=== PATIENT | male | born 1970 | race Caucasian/White ===

== ENCOUNTER 2018-06-09 20:24 | Emergency (ER) | payer OTHER ==
[2018-06-09] MEDS ORDERED: DECADRON PO ONE (21:29)
[2018-06-09] MEDS ORDERED: PROVENTIL IH ONE (21:29)
--- NOTE | 2018-06-09 21:31 | Emergency Department Report ---
Blank Doc - Documentation Documentation: 47 y/o male with pmh of asthma presents to ED c/o of coryza, chest congestion and wheezing. Feels he is having a asthma flare.
--- NOTE | 2018-06-09 23:12 | XRay Report ---
PROCEDURE: XR CHEST ROUTINE 2V TECHNIQUE: 2 view chest HISTORY: wheezing COMPARISONS: FINDINGS: Cardiac and mediastinal contours are unremarkable. No focal pulmonary infiltrate identified. No pleur al fluid collection seen. Pulmonary vasculature is unremarkable. IMPRESSION: No acute findings in the chest. This document is electronically signed by Jose Diana MD., Jun 09 2018 11:10:32 PM ET
[2018-06-10] MEDS ORDERED: ZITHROMAX PO ONE (02:58)
[2018-06-10] MEDS ORDERED: IBUPROFEN PO ONE (02:58)
[2018-06-10] MEDS ORDERED: PROVENTIL IH ONE (02:58)
--- NOTE | 2018-06-10 03:06 | Emergency Department Report ---
ED General Adult HPI - General Chief complaint: Chest Pain Stated complaint: CHEST PAIN/TAMMI Time Seen by Provider: 06/09/18 21:29 Source: patient Mode of arrival: Ambulatory Limitations: Language Barrier - History of Present Illness Initial comments: 47 y/o male with pmh of asthma presents to ED c/o of coryza, chest congestion and wheezing. Feels he is having a asthma flare. Onset/Timin -: week(s) Location: head, chest Radiation: non-radiation Severity scale (0 -10): 4 Quality: aching Consistency: constant Worsens with: other (environmental eposure ) Associated Symptoms: chest pain (chest wall pain), cough, shortness of breath. denies: diaphoresis, fever/chills, headaches, loss of appetite, malaise, nausea/vomiting, rash, seizure, syncope, weakness Treatments Prior to Arrival: none - Related Data Previous Rx's Medication Instructions Recorded Last Taken Type ALBUTEROL Inhaler(NF) [VENTOLIN 1 puff IH Q4H PRN #1 inha 06/10/18 Unknown Rx Inhaler(NF)] ALBUTEROL NEB's [Proventil 0.083% 2.5 mg IH Q4H PRN #25 vial 06/10/18 Unknown Rx NEBS] Azithromycin [Zithromax Z-WICHO] 250 mg PO DAILY #6 tab 06/10/18 Unknown Rx Benzonatate [Tessalon Perles] 100 mg PO Q8HR #30 capsule 06/10/18 Unknown Rx Ibuprofen 800 mg PO TID PRN #30 tablet 06/10/18 Unknown Rx Nebulizer Accessories [Sootheneb 1 each MC PRN #1 each 06/10/18 Unknown Rx [id number] Adult Mask] Nebulizer [Aeroneb Go Nebulizer] 1 each MC PRN PRN #1 each 06/10/18 Unknown Rx predniSONE [Deltasone] 40 mg PO QDAY 5 Days #10 tab 06/10/18 Unknown Rx Allergies Allergy/AdvReac Type Severity Reaction Status Date / Time No Known Allergies Allergy Unverified 06/09/18 20:31 ED Review of Systems ROS: Stated complaint: CHEST PAIN/TAMMI Other details as noted in HPI Constitutional: denies: chills, fever Eyes: denies: eye pain, eye discharge, vision change ENT: throat pain, congestion Respiratory: cough, shortness of breath, wheezing Cardiovascular: chest pain (left lateral chest wall pain ). denies: palpitations Endocrine: no symptoms reported Gastrointestinal: denies: abdominal pain, nausea, vomiting, diarrhea Genitourinary: denies: urgency, dysuria, frequency, hematuria, discharge Musculoskeletal: denies: back pain, joint swelling, arthralgia Skin: denies: rash, lesions Neurological: denies: headache, weakness, numbness, paresthesias, confusion, abnormal gait, vertigo Psychiatric: denies: anxiety, depression Hematological/Lymphatic: denies: easy bleeding, easy bruising ED Past Medical Hx - Past Medical History Hx Asthma: Yes - Surgical History Past Surgical History?: No - Social History Smoking Status: Never Smoker Substance Use Type: None - Medications Home Medications: Home Medications Medication Instructions Recorded Confirmed Last Taken Type ALBUTEROL Inhaler(NF) [VENTOLIN 1 puff IH Q4H PRN #1 inha 06/10/18 Unknown Rx Inhaler(NF)] ALBUTEROL NEB's [Proventil 0.083% 2.5 mg IH Q4H PRN #25 vial 06/10/18 Unknown Rx NEBS] Azithromycin [Zithromax Z-WICHO] 250 mg PO DAILY #6 tab 06/10/18 Unknown Rx Benzonatate [Tessalon Perles] 100 mg PO Q8HR #30 capsule 06/10/18 Unknown Rx Ibuprofen 800 mg PO TID PRN #30 tablet 06/10/18 Unknown Rx Nebulizer Accessories [Sootheneb 1 each MC PRN #1 each 06/10/18 Unknown Rx [id number] Adult Mask] Nebulizer [Aeroneb Go Nebulizer] 1 each MC PRN PRN #1 each 06/10/18 Unknown Rx predniSONE [Deltasone] 40 mg PO QDAY 5 Days #10 tab 06/10/18 Unknown Rx ED Physical Exam - General Limitations: Language Barrier General appearance: alert, in no apparent distress - Head Head exam: Present: atraumatic, normocephalic, normal inspection - Eye Eye exam: Present: normal appearance, PERRL, EOMI. Absent: conjunctival injection Pupils: Present: normal accommodation - ENT ENT exam: Present: mucous membranes moist - Expanded ENT Exam Expanded Ear exam: Present: normal external inspection Throat exam: Positive: tonsillar erythema, tonsillomegaly, other (uvula midline no). Negative: tonsillar exudate, R peritonsillar mass, L peritonsillar mass - Neck Neck exam: Present: normal inspection, full ROM. Absent: tenderness, meningismus, lymphadenopathy, thyromegaly - Respiratory Respiratory exam: Present: normal lung sounds bilaterally, wheezes, rhonchi, chest wall tenderness (bilat anterior chest tenderness and pain with palpation and cough ). Absent: respiratory distress, stridor - Cardiovascular Cardiovascular Exam: Present: normal rhythm, tachycardia, normal heart sounds. Absent: systolic murmur, diastolic murmur, rubs, gallop - GI/Abdominal GI/Abdominal exam: Present: soft, normal bowel sounds. Absent: tenderness, bruit, hernia - Rectal Rectal exam: Present: deferred - Extremities Exam Extremities exam: Present: normal inspection, full ROM, normal capillary refill. Absent: tenderness - Back Exam Back exam: Present: normal inspection, full ROM. Absent: tenderness, CVA tenderness (R), CVA tenderness (L), muscle spasm, paraspinal tenderness, vertebral tenderness, rash noted - Neurological Exam Neurological exam: Present: alert, oriented X3, CN II-XII intact, normal gait - Psychiatric Psychiatric exam: Present: normal affect, normal mood - Skin Skin exam: Present: warm, dry, intact, normal color. Absent: rash ED Course Vital Signs 06/09/18 06/10/18 20:30 03:07 Temperature 99.2 F 99.1 F Pulse Rate 113 H 92 H Respiratory 18 18 Rate Blood Pressure 129/98 Blood Pressure 104/68 [Right] O2 Sat by Pulse 96 95 Oximetry ED Medical Decision Making - Lab Data Result diagrams: 06/10/18 02:58 06/10/18 02:58 Labs 06/10/18 06/10/18 02:58 02:58 WBC 4.2 L RBC 5.54 H Hgb 15.7 H Hct 47.0 H MCV 85 MCH 28 MCHC 33 RDW 13.9 Plt Count 182 Lymph % (Auto) 14.8 Graham % (Auto) 9.7 H Eos % (Auto) 3.8 Baso % (Auto) 1.0 Lymph # 0.6 L Graham # 0.4 Eos # 0.2 Baso # 0.0 Seg Neutrophils % 70.7 H Seg Neutrophils # 2.9 Sodium 136 L Potassium 3.8 Chloride 96.4 L Carbon Dioxide 26 Anion Gap 17 BUN 8 L Creatinine 1.1 Estimated GFR > 60 BUN/Creatinine Ratio 7 Glucose 99 Calcium 8.9 Troponin T < 0.010 - EKG Data EKG shows normal: sinus rhythm, axis, intervals, QRS complexes, ST-T waves Rate: normal - EKG Data Interpretation: normal EKG (ekg interp by ed attending, no ST Elevated ME ) - Radiology Data Radiology results: report reviewed, image reviewed Normal chest xray no infiltrate no opacities. - Medical Decision Making Normal chest xray no infiltrate no opacities , plan: hydrate NS , albuterol neb, steroids, reaassess. Reassessment: Albuterol #2 - 10 mg continuous, azithromycin, ibuprofen, reassess 0421:Resp are improved, wheezing decreased pt is ambulatory in ed without increased sob or wheezing , plan, dc to home with rx for albuterol inhaler, neb, prednisone, Zpac, Tessalon Pearls, ibuprofen pt verbalized agreement and understanding of discharge plan, pt for dc to home in stable condition at this time. Critical care attestation.: If time is entered above; I have spent that time in minutes in the direct care of this critically ill patient, excluding procedure time. ED Disposition Clinical Impression: Bronchitis Asthma Qualifiers: Asthma severity: moderate Asthma persistence: persistent Asthma complication type: with acute exacerbation Qualified Code(s): J45.41 - Moderate persistent asthma with (acute) exacerbation Disposition: DC-01 TO HOME OR SELFCARE Is pt being admited?: No Does the pt Need Aspirin: No Condition: Stable Instructions: Chronic Bronchitis (ED), Asthma (ED) Prescriptions: Nebulizer [Aeroneb Go Nebulizer] 1 each MC PRN PRN #1 each PRN Reason: shortness of breath wheezing predniSONE [Deltasone] 40 mg PO QDAY 5 Days #10 tab Ibuprofen 800 mg PO TID PRN #30 tablet PRN Reason: pain ALBUTEROL NEB's [Proventil 0.083% NEBS] 2.5 mg IH Q4H PRN #25 vial PRN Reason: shortness of breath wheezing Nebulizer Accessories [Sootheneb [id number] Adult Mask] 1 each MC PRN #1 each Benzonatate [Tessalon Perles] 100 mg PO Q8HR #30 capsule ALBUTEROL Inhaler(NF) [VENTOLIN Inhaler(NF)] 1 puff IH Q4H PRN #1 inha PRN Reason: shortnes of breath wheezing Azithromycin [Zithromax Z-WICHO] 250 mg PO DAILY #6 tab Referrals: [facility] [Outside] - 3-5 Days Forms: Work/School Release Form(ED) Time of Disposition: 04:29
[2018-06-10 03:08] VITALS: BP 104/68
[2018-06-10 03:16] LABS: Eosinophils # (Auto) 0.2 K/mm3 (0.0-0.4); Eosinophils % (Auto) 3.8 % (0.0-4.3); Hemoglobin 15.7 gm/dl (11.8-15.2); Lymphocytes # (Auto) 0.6 K/mm3 (1.2-5.4); Lymphocytes % (Auto) 14.8 % (13.4-35.0); Mean Corpuscular HGB Conc 33 % (32-34); Mean Corpuscular Volume 85 fl (84-94); Monocytes # (Auto) 0.4 K/mm3 (0.0-0.8); Monocytes % (Auto) 9.7 % (0.0-7.3); Platelet Count 182 K/mm3 (140-440); Red Blood Count 5.54 M/mm3 (3.65-5.03); Red Cell Distribution Width 13.9 % (13.2-15.2)
[2018-06-10 03:20] LABS: BUN/Creatinine Ratio 7; Blood Urea Nitrogen 8 mg/dL (9-20); Calcium 8.9 mg/dL (8.4-10.2); Hemolysis Index 14
[2018-06-10] MEDS ORDERED: DECADRON ONE (03:36)
== END 2018-06-10 06:10 | disposition home or self-care (01) ==
LOC: ED 20:24
DX: J45.41 Moderate persistent asthma with (acute) exacerbation (principal)
CPT/HCPCS: 36415; 71046; 80048; 84484; 85025; 93005; 93010; 99284; J1100

== ENCOUNTER 2018-07-27 14:21 | Emergency (ER) | payer OTHER ==
[2018-07-27] MEDS ORDERED: SOLU-Medrol IV ONE (14:27)
[2018-07-27] MEDS ORDERED: CLARITIN PO ONE (14:27)
[2018-07-27] MEDS ORDERED: PROVENTIL IH ONE (14:27)
--- NOTE | 2018-07-27 14:52 | XRay Report ---
AP CHEST: HISTORY: Wheezing AP view of the chest demonstrates a normal mediastinal and cardiac contour with clear lungs and normal bony and soft tissue structures. IMPRESSION: Unremarkable AP chest.
--- NOTE | 2018-07-27 15:54 | Emergency Department Report ---
ED Shortness of Breath HPI - General Chief Complaint: Adult Asthma Stated Complaint: ASTHMA Time Seen by Provider: 07/27/18 14:52 Source: patient Mode of arrival: Ambulatory Limitations: No Limitations - History of Present Illness Initial Comments: 47-year-old male history of asthma presents to ED with wheezing and shortness of breath. Patient reports onset today. Denies fever or productive cough. MD Complaint: shortness of breath, "asthma attack" -: This afternoon Severity: moderate Consistency: constant Improves With: bronchodilators Worsens With: nothing Known History Of: asthma Associated Symptoms: denies other symptoms Treatments Prior to Arrival: bronchodilator - Related Data Previous Rx's Medication Instructions Recorded Last Taken Type ALBUTEROL Inhaler(NF) [VENTOLIN 1 puff IH Q4H PRN #1 inha 06/10/18 Unknown Rx Inhaler(NF)] ALBUTEROL NEB's [Proventil 0.083% 2.5 mg IH Q4H PRN #25 vial 06/10/18 Unknown Rx NEBS] Azithromycin [Zithromax Z-WICHO] 250 mg PO DAILY #6 tab 06/10/18 Unknown Rx Benzonatate [Tessalon Perles] 100 mg PO Q8HR #30 capsule 06/10/18 Unknown Rx Ibuprofen [Ibuprofen 800] 800 mg PO TID PRN #30 tablet 06/10/18 Unknown Rx Nebulizer Accessories [Sootheneb 1 each MC PRN #1 each 06/10/18 Unknown Rx [id number] Adult Mask] Nebulizer [Aeroneb Go Nebulizer] 1 each MC PRN PRN #1 each 06/10/18 Unknown Rx predniSONE [Deltasone] 40 mg PO QDAY 5 Days #10 tab 06/10/18 Unknown Rx Albuterol Sulfate [Albuterol 0.63% 0.63 mg IH TID PRN #100 vial 07/27/18 Unknown Rx NEBS] Albuterol Sulfate [Proventil Hfa] 2 puff IH Q4HR PRN #1 hfa.aer.ad 07/27/18 Unknown Rx predniSONE [Deltasone] 50 mg PO QDAY #5 tab 07/27/18 Unknown Rx Allergies Allergy/AdvReac Type Severity Reaction Status Date / Time No Known Allergies Allergy Verified 07/27/18 14:22 ED Review of Systems ROS: Stated complaint: ASTHMA Other details as noted in HPI Comment: All other systems reviewed and negative Constitutional: denies: chills, fever Respiratory: shortness of breath, wheezing Cardiovascular: denies: chest pain ED Past Medical Hx - Past Medical History Hx Asthma: Yes - Social History Smoking Status: Never Smoker Substance Use Type: None - Medications Home Medications: Home Medications Medication Instructions Recorded Confirmed Last Taken Type ALBUTEROL Inhaler(NF) [VENTOLIN 1 puff IH Q4H PRN #1 inha 06/10/18 Unknown Rx Inhaler(NF)] ALBUTEROL NEB's [Proventil 0.083% 2.5 mg IH Q4H PRN #25 vial 06/10/18 Unknown Rx NEBS] Azithromycin [Zithromax Z-WICHO] 250 mg PO DAILY #6 tab 06/10/18 Unknown Rx Benzonatate [Tessalon Perles] 100 mg PO Q8HR #30 capsule 06/10/18 Unknown Rx Ibuprofen [Ibuprofen 800] 800 mg PO TID PRN #30 tablet 06/10/18 Unknown Rx Nebulizer Accessories [Sootheneb 1 each MC PRN #1 each 06/10/18 Unknown Rx [id number] Adult Mask] Nebulizer [Aeroneb Go Nebulizer] 1 each MC PRN PRN #1 each 06/10/18 Unknown Rx predniSONE [Deltasone] 40 mg PO QDAY 5 Days #10 tab 06/10/18 Unknown Rx Albuterol Sulfate [Albuterol 0.63% 0.63 mg IH TID PRN #100 vial 07/27/18 Unknown Rx NEBS] Albuterol Sulfate [Proventil Hfa] 2 puff IH Q4HR PRN #1 hfa.aer.ad 07/27/18 Unknown Rx predniSONE [Deltasone] 50 mg PO QDAY #5 tab 07/27/18 Unknown Rx ED Physical Exam - General Limitations: No Limitations General appearance: alert - Head Head exam: Present: atraumatic, normocephalic - Eye Eye exam: Present: normal appearance - ENT ENT exam: Present: mucous membranes moist - Neck Neck exam: Present: normal inspection - Respiratory Respiratory exam: Present: wheezes - Cardiovascular Cardiovascular Exam: Present: normal rhythm, tachycardia - GI/Abdominal GI/Abdominal exam: Absent: distended - Extremities Exam Extremities exam: Present: normal inspection - Neurological Exam Neurological exam: Present: alert, oriented X3 - Psychiatric Psychiatric exam: Present: normal affect, normal mood - Skin Skin exam: Present: warm, dry, intact, normal color. Absent: rash ED Course Vital Signs 07/27/18 07/27/18 07/27/18 14:24 14:27 14:30 Temperature 97.4 F L Pulse Rate 108 H 79 Respiratory 22 29 H Rate Blood Pressure 148/114 135/80 O2 Sat by Pulse 97 95 95 Oximetry 07/27/18 07/27/18 07/27/18 14:45 15:00 15:15 Temperature Pulse Rate 78 73 81 Respiratory 22 30 H 20 Rate Blood Pressure 133/80 123/75 114/75 O2 Sat by Pulse 95 97 97 Oximetry 07/27/18 07/27/18 07/27/18 15:30 15:45 16:00 Temperature Pulse Rate 99 H 66 64 Respiratory 28 H 18 18 Rate Blood Pressure 118/70 114/70 111/69 O2 Sat by Pulse 94 94 95 Oximetry 07/27/18 07/27/18 07/27/18 16:15 16:30 16:45 Temperature Pulse Rate 73 Respiratory 20 21 17 Rate Blood Pressure 112/77 112/77 109/64 O2 Sat by Pulse 97 96 94 Oximetry 07/27/18 07/27/18 07/27/18 17:00 17:15 17:30 Temperature Pulse Rate Respiratory 16 16 18 Rate Blood Pressure 104/72 109/72 116/75 O2 Sat by Pulse 96 96 97 Oximetry 07/27/18 17:46 Temperature Pulse Rate Respiratory 14 Rate Blood Pressure 125/79 O2 Sat by Pulse 96 Oximetry ED Medical Decision Making - Radiology Data Radiology results: report reviewed, image reviewed - Medical Decision Making - acute asthma exacerbation - steroids and nebs given - wheezing resolved, O2 sats normal, no resp distress at this time - CXR normal - outpt f/u advised, return precautions given - Differential Diagnosis asthma, pneumonia Critical care attestation.: If time is entered above; I have spent that time in minutes in the direct care of this critically ill patient, excluding procedure time. ED Disposition Clinical Impression: Asthma with acute exacerbation in adult Disposition: DC-01 TO HOME OR SELFCARE Is pt being admited?: No Condition: Stable Instructions: Asthma (ED) Prescriptions: Albuterol Sulfate [Albuterol 0.63% NEBS] 0.63 mg IH TID PRN #100 vial PRN Reason: Wheezing predniSONE [Deltasone] 50 mg PO QDAY #5 tab Albuterol Sulfate [Proventil Hfa] 2 puff IH Q4HR PRN #1 hfa.aer.ad PRN Reason: Wheezing Referrals: MAT BOOTHE MD [Staff Physician] - 3-5 Days [facility] [Provider Group] - 3-5 Days Time of Disposition: 16:15
[2018-07-27 17:48] VITALS: BP 125/79
== END 2018-07-27 17:54 | disposition home or self-care (01) ==
LOC: ED 14:21
DX: J45.901 Unspecified asthma with (acute) exacerbation (principal)
CPT/HCPCS: 71045; 96374; 99283; J2930

== ENCOUNTER 2018-08-18 22:36 | Emergency (ER) | payer OTHER ==
[2018-08-18] MEDS ORDERED: SOLU-Medrol IM ONE (23:00)
[2018-08-18] MEDS ORDERED: PROVENTIL IH ONE (23:00)
--- NOTE | 2018-08-18 23:47 | XRay Report ---
CHEST 2 VIEWS INDICATION / CLINICAL INFORMATION: dyspnea. COMPARISON: 07/27/2018 FINDINGS: SUPPORT DEVICES: None. HEART / MEDIASTINUM: No significant abnormality. LUNGS / PLEURA: No significant pulmonary or pleural abnormality. No pneumothorax. ADDITIONAL FINDINGS: No significant additional findings. IMPRESSION: 1. No acute findings. Signer Name: Nathaniel Larson MD Signed: 08/18/2018 11:43 PM Workstation Name: [id number]
--- NOTE | 2018-08-19 00:39 | Emergency Department Report ---
ED General Adult HPI - General Chief complaint: Dyspnea/Respdistress Stated complaint: TAMMI/ASTHMA Time Seen by Provider: 08/18/18 23:40 Source: patient Mode of arrival: Ambulatory Limitations: Language Barrier - History of Present Illness Initial comments: Patient is a 47-year-old -Mosoth[place] male with a history of asthma with occasional exacerbations who presents to the ED complaining of acute onset of persistent shortness of breath for the last 2 hours. Patient states that he does not have any bronchodilators at home by direct who was at home after having shortness of breath with dry cough and wheezing. Patient states that in the last 20 minutes prior to arrival in the ED his symptoms got worse. Patient denies chest pain, fever, chills, nausea, vomiting, abdominal pain, dizziness, sore throat, neck pain, palpitations, nasal and sinus congestion. MD Complaint: dyspnea, wheezing, cough -: Sudden, hour(s) (2) Location: chest Radiation: non-radiation Severity scale (0 -10): 6 Quality: dull Consistency: constant Improves with: none Worsens with: none Associated Symptoms: denies other symptoms, cough, shortness of breath. denies: confusion, chest pain, diaphoresis, fever/chills, headaches, loss of appetite, malaise, nausea/vomiting, rash, seizure, syncope, weakness, other Treatments Prior to Arrival: none - Related Data Previous Rx's Medication Instructions Recorded Last Taken Type ALBUTEROL Inhaler(NF) [VENTOLIN 1 puff IH Q4H PRN #1 inha 06/10/18 Unknown Rx Inhaler(NF)] ALBUTEROL NEB's [Proventil 0.083% 2.5 mg IH Q4H PRN #25 vial 06/10/18 Unknown Rx NEBS] Azithromycin [Zithromax Z-WICHO] 250 mg PO DAILY #6 tab 06/10/18 Unknown Rx Benzonatate [Tessalon Perles] 100 mg PO Q8HR #30 capsule 06/10/18 Unknown Rx Ibuprofen [Ibuprofen 800] 800 mg PO TID PRN #30 tablet 06/10/18 Unknown Rx Nebulizer Accessories [Sootheneb 1 each MC PRN #1 each 06/10/18 Unknown Rx [id number] Adult Mask] Nebulizer [Aeroneb Go Nebulizer] 1 each MC PRN PRN #1 each 06/10/18 Unknown Rx predniSONE [Deltasone] 40 mg PO QDAY 5 Days #10 tab 06/10/18 Unknown Rx Albuterol Sulfate [Albuterol 0.63% 0.63 mg IH TID PRN #100 vial 07/27/18 Unknown Rx NEBS] Albuterol Sulfate [Proventil Hfa] 2 puff IH Q4HR PRN #1 hfa.aer.ad 07/27/18 Unknown Rx predniSONE [Deltasone] 50 mg PO QDAY #5 tab 07/27/18 Unknown Rx ALBUTEROL Inhaler (OR & NICU) 1 - 2 puff IH Q4H PRN #1 inha 08/19/18 Unknown Rx [ProAir HFA Inhaler] Benzonatate [Tessalon Perles] 100 mg PO Q8HR PRN #30 capsule 08/19/18 Unknown Rx methylPREDNISolone [Medrol 4MG 4 mg PO DAILY #21 tab.ds.pk 08/19/18 Unknown Rx DOSEPAK (21 tabs)] Allergies Allergy/AdvReac Type Severity Reaction Status Date / Time No Known Allergies Allergy Verified 07/27/18 14:22 ED Review of Systems ROS: Stated complaint: TAMMI/ASTHMA Other details as noted in HPI Constitutional: denies: chills, fever Eyes: denies: eye pain, eye discharge, vision change ENT: denies: ear pain, throat pain Respiratory: cough, shortness of breath, wheezing Cardiovascular: denies: chest pain, palpitations Endocrine: no symptoms reported Gastrointestinal: denies: abdominal pain, nausea, diarrhea Genitourinary: denies: urgency, dysuria Musculoskeletal: denies: back pain, joint swelling, arthralgia Skin: denies: rash, lesions Neurological: denies: headache, weakness, paresthesias Psychiatric: denies: anxiety, depression Hematological/Lymphatic: denies: easy bleeding, easy bruising ED Past Medical Hx - Past Medical History Previous Medical History?: Yes Hx Asthma: Yes - Surgical History Past Surgical History?: No - Social History Smoking Status: Never Smoker Substance Use Type: None - Medications Home Medications: Home Medications Medication Instructions Recorded Confirmed Last Taken Type ALBUTEROL Inhaler(NF) [VENTOLIN 1 puff IH Q4H PRN #1 inha 06/10/18 Unknown Rx Inhaler(NF)] ALBUTEROL NEB's [Proventil 0.083% 2.5 mg IH Q4H PRN #25 vial 06/10/18 Unknown Rx NEBS] Azithromycin [Zithromax Z-WICHO] 250 mg PO DAILY #6 tab 06/10/18 Unknown Rx Benzonatate [Tessalon Perles] 100 mg PO Q8HR #30 capsule 06/10/18 Unknown Rx Ibuprofen [Ibuprofen 800] 800 mg PO TID PRN #30 tablet 06/10/18 Unknown Rx Nebulizer Accessories [Sootheneb 1 each MC PRN #1 each 06/10/18 Unknown Rx [id number] Adult Mask] Nebulizer [Aeroneb Go Nebulizer] 1 each MC PRN PRN #1 each 06/10/18 Unknown Rx predniSONE [Deltasone] 40 mg PO QDAY 5 Days #10 tab 06/10/18 Unknown Rx Albuterol Sulfate [Albuterol 0.63% 0.63 mg IH TID PRN #100 vial 07/27/18 Unknown Rx NEBS] Albuterol Sulfate [Proventil Hfa] 2 puff IH Q4HR PRN #1 hfa.aer.ad 07/27/18 Unknown Rx predniSONE [Deltasone] 50 mg PO QDAY #5 tab 07/27/18 Unknown Rx ALBUTEROL Inhaler (OR & NICU) 1 - 2 puff IH Q4H PRN #1 inha 08/19/18 Unknown Rx [ProAir HFA Inhaler] Benzonatate [Tessalon Perles] 100 mg PO Q8HR PRN #30 capsule 08/19/18 Unknown Rx methylPREDNISolone [Medrol 4MG 4 mg PO DAILY #21 tab.ds.pk 08/19/18 Unknown Rx DOSEPAK (21 tabs)] ED Physical Exam - General Limitations: Language Barrier General appearance: alert, in no apparent distress - Head Head exam: Present: atraumatic, normocephalic, normal inspection - Eye Eye exam: Present: normal appearance, PERRL, EOMI Pupils: Present: normal accommodation - ENT ENT exam: Present: normal exam, normal orophraynx, mucous membranes moist, TM's normal bilaterally, normal external ear exam - Neck Neck exam: Present: normal inspection, full ROM. Absent: tenderness, meningismus, thyromegaly - Respiratory Respiratory exam: Present: normal lung sounds bilaterally, wheezes (moderately diffuse coarse wheezes). Absent: respiratory distress, rales, rhonchi, stridor, chest wall tenderness, accessory muscle use, decreased breath sounds - Cardiovascular Cardiovascular Exam: Present: regular rate, normal rhythm, normal heart sounds. Absent: systolic murmur, diastolic murmur, rubs, gallop - GI/Abdominal GI/Abdominal exam: Present: soft, normal bowel sounds. Absent: distended, tenderness, guarding, rebound, rigid, hyperactive bowel sounds, hypoactive bowel sounds, organomegaly, mass - Rectal Rectal exam: Present: deferred - Extremities Exam Extremities exam: Present: normal inspection, full ROM, normal capillary refill - Back Exam Back exam: Present: normal inspection, full ROM. Absent: tenderness, CVA tenderness (L), muscle spasm, paraspinal tenderness, vertebral tenderness - Neurological Exam Neurological exam: Present: alert, oriented X3, CN II-XII intact, normal gait, reflexes normal - Psychiatric Psychiatric exam: Present: normal affect, normal mood - Skin Skin exam: Present: warm, dry, intact, normal color. Absent: rash ED Course Vital Signs 08/18/18 08/18/18 08/18/18 22:43 23:25 23:46 Temperature 97.8 F Pulse Rate 72 Pulse Rate [ 72 70 Bilateral] Respiratory 18 Rate Respiratory 20 20 Rate [Bilateral ] Blood Pressure 144/97 O2 Sat by Pulse 96 Oximetry - Reevaluation(s) Reevaluation #1: 08/19/18 00:46 Patient is alert and oriented 3 and is not in distress but has audible wheezing and her physical exam. Chest x-ray shows no acute cardiopulmonary abnormalities. Patient was treated in the ED with Solu-Medrol 125 mg intramuscular injection, and also received albuterol 5 mg nebulizer and 80. On reevaluation, patient's shortness of breath is significantly improved with the medication, and the wheezing has resolved. Patient will be sent home on Medrol Dosepak, albuterol and Tessalon Perles. Patient's symptoms are likely due to acute asthma exacerbation. Patient was advised to follow-up with his primary care physician in 2 days for reevaluation or return to the ED immediately if symptoms get worse. ED Medical Decision Making - Radiology Data Radiology results: report reviewed, image reviewed Chest x-ray shows no acute cardiopulmonary abnormalities - Medical Decision Making Patient is alert and oriented 3 and is not in distress but has audible wheezing and her physical exam. Chest x-ray shows no acute cardiopulmonary abnormalities. Patient was treated in the ED with Solu-Medrol 125 mg intramuscular injection, and also received albuterol 5 mg nebulizer and 80. On reevaluation, patient's shortness of breath is significantly improved with the medication, and the wheezing has resolved. Patient will be sent home on Medrol Dosepak, albuterol and Tessalon Perles. Patient's symptoms are likely due to acute asthma exacerbation. Patient was advised to follow-up with his primary care physician in 2 days for reevaluation or return to the ED immediately if symptoms get worse. - Differential Diagnosis Acuet asthma exacerbation; dyspnea; acute bronchitis, pneumonia Critical care attestation.: If time is entered above; I have spent that time in minutes in the direct care of this critically ill patient, excluding procedure time. ED Disposition Clinical Impression: Shortness of breath Acute asthma exacerbation Qualifiers: Asthma severity: mild Asthma persistence: intermittent Qualified Code(s): J45.21 - Mild intermittent asthma with (acute) exacerbation Disposition: DC- TO HOME OR SELFCARE Is pt being admited?: No Does the pt Need Aspirin: No Condition: Stable Instructions: Asthma (ED), Dyspnea (ED) Additional Instructions: Take medications as advised, drink plenty of fluids and follow-up with your primary-care physician in 2-3 days for reevaluation. Return to the ED immedia tely if symptoms get worse. Prescriptions: methylPREDNISolone [Medrol 4MG DOSEPAK (21 tabs)] 4 mg PO DAILY #21 tab.ds.pk ALBUTEROL Inhaler (OR & NICU) [ProAir HFA Inhaler] 1 - 2 puff IH Q4H PRN #1 inha PRN Reason: Dyspnea Benzonatate [Tessalon Perles] 100 mg PO Q8HR PRN #30 capsule PRN Reason: Cough Referrals: [facility] [Outside] - 3-5 Days Time of Disposition: 00:39 Print Language: FIJIAN
[2018-08-19 01:18] VITALS: BP 132/79
== END 2018-08-19 01:31 | disposition home or self-care (01) ==
LOC: ED 22:36
DX: J45.901 Unspecified asthma with (acute) exacerbation (principal); Z79.899 Other long term (current) drug therapy
CPT/HCPCS: 71046; 94640; 96372; 99283; J2930